=== PATIENT | male | born 1965 | race Caucasian/White ===

== ENCOUNTER → 2021-08-17 | Outpatient (REF) ==
[2021-08-17 12:57] LABS: ALBUMIN 2.4 g/dL (3.5-5.0)
[2021-08-17 12:58] LABS: POTASSIUM 4.6 mmol/L (3.5-5.1)
[2021-08-17 12:59] LABS: CALCIUM 8.7 mg/dL (8.3-10.5)
== END ==
LOC: LAB 11:50
PROVIDERS: Internal Medicine Nephrology
DX: Z01.89 Encounter for other specified special examinations (principal)